=== PATIENT | female | born 1995 | race Caucasian/White ===

== ENCOUNTER 2022-06-10 03:08 | Inpatient (IN) | payer OTHER, SELFPAY ==
[2022-06-10] VITALS (37 sets, daily range): BP systolic 98–112; BP diastolic 53–72; PULSE 58–97; RESP 15; TEMP 36.4–37.6; O2SAT 89–100; BMI 22.6
[2022-06-10] MEDS: Lactated Ringers 1,000 ML 200 ML IV (03:00)
[2022-06-10 03:28] LABS: Mucous, Urine 0 SEEN /hpf (<or=2+)
[2022-06-10 03:32] LABS: Absolute Lymphocyte Count 2.49 X10^3/uL (0.83-4.51); Absolute Neutrophil Count 5.7 X10^3/uL (2.0-7.7); Basophil# 0.03 X10^3/uL; Basophil% 0.3 % (0-1); Eosinophil# 0.26 X10^3/uL; Eosinophils% 2.7 % (0-5); Hematocrit 35.5 % (37-47); Hemoglobin 12.1 g/dL (12.0-15.0); Lymphocyte # 2.49 X10^3/ul (0.83-4.51); Lymphocyte % 26.2 % (19-41); Mean Corp Hgb Conc 34.1 g/dL (32-36); Mean Corpuscular Hgb 30.9 pg (27.0-32.0); Mean Corpuscular Volume 90.6 fL (81-99); Mean Platelet Vol. 9.7 fl (6.2-12.0); Monocyte# 0.95 X10^3/uL; NRBC Flagged by Analyzer 0 % (0-5); Neutrophil # 5.71 X10^3/uL (2.7-7.7); Neutrophil % 60.2 % (47-70); Platelet Count 183 K/mm3 (150-450); RBC Distribution Width CV 12.8 % (11.6-14.6); RBC Distribution Width SD 42.3 fl (35.1-43.9); Red Blood Count 3.92 M/mm3 (4.2-5.4); White Blood Count 9.5 K/mm3 (4.4-11.0)
[2022-06-10 03:34] LABS: Color, Urine Yellow (Yellow); Glucose, Dipstick Normal (Normal); Ketone-Dipstick 5 mg/dl (Negative); Leukocyte Esterase-Dipstick 100 /ul (Negative); Nitrite-Dipstick Negative (Negative); Occult Blood-Urine 250 /ul (Negative); Protein-Dipstick 30 mg/dl (Negative); Urine Bilirubin Dipstick Negative (Negative); Urine Clarity Cloudy (Clear); Urine Urobilinogen Normal (Normal)
[2022-06-10 03:46] LABS: Bacteria RARE /hpf (None Seen); Red Blood Cells-Urine > 100 SEEN /hpf (0-5); Renal Epithelial Cells 0-5 SEEN /hpf (0-5); Squamous Epithelial Cells - UA 0-5 SEEN /hpf (5-10); White Blood Cells 0-5 SEEN /hpf (0-5)
--- NOTE | 2022-06-10 03:47 | HP.PCM.OB_ITS ---
HPI - General General Date of Admission: 06/10/22 HPI Narrative MARLEY JOSEPH, is a 27 F who presents IAL 7 cm dilated. 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 Maternal Data Information MAGDY Calculator Estimated Delivery Date Method Current WG Current Estimate 06/03/22 Manual 41w 0d PFSH PFSH Medical History (Updated 06/10/22 @ 03:[address] Ladan Apodaca MD) depression Superficial varicosities Home Medications [id number] 1 mg tablet 1 tab PO DAILY 06/10/22 [History Last Taken 06/09/22 14:00] Allergy/AdvReac Type Severity Reaction Status Date / Time No Known Allergies Allergy Verified 06/10/22 02:55 Social History Smoking Status: Never smoker History 4 Elective abortions Hx Para 3 Spontaneous abortions Hx # Term Pregnancies 3 Ectopic pregnancies Hx # Pregnancies Multiple births # of living children 3 Addt'l History: first one had mild PPH managed at home, all home births without any compications per patient. all oldest child turning 5 in june Visit Details OB Flowsheet Initial Weight: Not Recorded Date -?-?-?-?-?-?-?-?-?-?-?-?- EGA Weight BP Urine Prot -?-?-?-?-?-?-?-?-?-?-?-?- Glucose FHR FuHt Pres Dilation -?-?-?-?-?-?-?-?-?-?-?-?- Effaced St Visit Note 06/10/22 -?-?-?-?-?-?-?-?-?-?-?-?- 41w 0d 119 lb 11.376 oz 106 /65 112/58 30 mg/dl (Negative) H -?-?-?-?-?-?-?-?-?-?-?-?- -?-?-?-?-?-?-?-?-?-?-?-?- NST FHR Rate Baby A Baseline: 140 Variability:: Moderate Accelerations:: 15 x 15 Decelerations:: None NST Reactive:: Yes FHR Category:: Category I Uterine Activity:: q3-5 ROS Constitutional Constitutional: Reports systems reviewed and no addt'l complaints, except as documented ENT HEENT: Reports systems reviewed and no addt'l complaints, except as documented Cardiovascular Cardiovascular: Reports systems reviewed and no addt'l complaints, except as documented Respiratory/Chest Respiratory/Chest: Reports systems reviewed and no addt'l complaints, except as documented Gastrointestinal Gastrointestinal: Reports systems reviewed and no addt'l complaints, except as documented and nausea; Denies abdominal pain Genitourinary Genitourinary: Reports systems reviewed and no addt'l complaints, except as documented, contractions Details: present and frequency (regular ) and movement Details: present Musculoskeletal Musculoskeletal: Reports systems reviewed and no addt'l complaints, except as documented Integumentary Integumentary: Reports as per HPI Neurologic Neurologic: Reports systems reviewed and no addt'l complaints, except as documented Endocrine Endocrinology: Reports systems reviewed and no addt'l complaints, except as documented Vital Signs Vital Signs Vital Signs: 06/10/22 02:50 06/10/22 02:50 06/10/22 02:55 Temperature Temperature Source Pulse Rate 66 84 Blood Pressure BP Systolic BP Diastolic Pulse Ox 99 06/10/22 02:55 06/10/22 02:58 06/10/22 02:58 Temperature Temperature Source Pulse Rate 78 Blood Pressure 106/65 BP Systolic 106 BP Diastolic 65 Pulse Ox 100 06/10/22 02:58 06/10/22 02:58 Temperature 99.0 F Temperature Source Temporal Pulse Rate Blood Pressure BP Systolic BP Diastolic Pulse Ox Weight Weight: 119 lb 11.376 oz Body Mass Index (BMI) 22.6 Physical Exam Const alert, oriented x3 and healthy appearing Constitutional Narrative: uncomfortable with contractions HEENT normocephalic and moist oral mucous membranes Head and Scalp: atraumatic Neck full ROM, no lymphadenopathy, supple and thyroid normal General: trachea midline Thyroid: thyroid normal Lymph Lymphatic: no lymphadenopathy noted Chest inspection of chest normal Resp normal respiratory effort Cardio regular rate GI normal to inspection, nondistended, normoactive bowel sounds, soft to palpation and non-tender Inspection: gravid external exam normal Bimanual Exam - Vag & Uterus: uterus non-tender Manual OB Exam: estimated gestational size appropriate, presentation cephalic, dilated, effaced and station Extremity normal to inspection General Extremity: Negative for edema Skin no rashes or lesions noted Neuro deep tendon reflexes 2+ bilaterally Motor Exam: strength 5/5 throughout and clonus absent Psych mental status grossly normal Labs Labs Labs: Blood Type Pending Antibody Screen Pending Hct 35.5 % (37-47) L Hgb 12.1 g/dL (12.0-15.0) Syphilis Total Ab Pending Rubella IgG Antibody Pending Hep Bs Antigen Pending HIV 1&2 Antibody Pending Assessment & Plan (1) Vaginal bleeding during : COMMENT: minimal now, fundal placenta on bedside ultrasound (2) Active labor at term: COMMENT: exp management, continuous monitoring PLAN: Plan Patient presents IAL, plan expectant management for , pitocin/AROM PRN if needed. Pain management: none. GBS no risk factors will treat based on CDC risk factor criteria. Management of any complications: none I have reviewed the [facility] and made any clinically relevant updates.
[2022-06-10 03:49] LABS: Amphetamine Urine VISTA NEGATIVE (<1000 ng/mL); Barbiturate Urine VISTA NEGATIVE (< 200 ng/mL); Benzodiazepine Urine VISTA NEGATIVE (< 200 ng/mL); Cocaine Urine VISTA NEGATIVE (< 300 ng/mL); Ecstacy Urine VISTA NEGATIVE (< 500 ng/mL); Methadone Urine VISTA NEGATIVE (< 300 ng/mL); PCP Urine VISTA NEGATIVE (< 25 ng/mL); THC Urine VISTA NEGATIVE (< 50 ng/mL); Vista UDS pH Range 7
[2022-06-10] MEDS: Oxytocin 10 UNITS/ML Vial IM (05:47)
[2022-06-10] MEDS: Methylergonovine 0.2 MG/ML Ampul IM (05:51)
[2022-06-10] MEDS: Carboprost Tromethamine 250 MCG/ML Ampul IM (06:25)
--- NOTE | 2022-06-10 07:08 | EX.PCM.OBRPT ---
Assessment & Plan (1) Active labor at term: COMMENT: exp management, continuous monitoring (2) Vaginal bleeding during : COMMENT: minimal now, fundal placenta on bedside ultrasound (3) Vaginal delivery: COMMENT: SM care associate transfer at due to bleeding, marginal abruption. 41 boy umbilical mass noted at delivery, transported to [facility] (4) abnormality in , delivered: COMMENT: umbilical mass noted at delivery, transported to [facility] (5) Placental abruption affecting delivery: Maternal Data Information MAGDY Calculator Estimated Delivery Date Method Current WG Current Estimate 06/03/22 Manual 41w 0d Vaginal Delivery Operative Information Date of Procedure: 06/10/22 Pre-Operative Diagnosis: IAL Post-Operative Diagnosis: same Surgery / Procedure Performed: Spontaneous Vaginal Delivery Type of Anesthesia: Epidural Special Medications: methergine hemabate pitocin Estimated Blood Loss: 600 Fluids Replaced: crystalloid Findings Description of Procedure: Patient began pushing and delivered the head in the ROGER presentation. The head was delivered atraumatically . The anterior and posterior shoulders delivered without complication followed by the rest of the infant and the was placed on the maternal abdomen. Delayed cord clamping was employed for approximately 60 seconds, umbilical mass was noted to be protuding from the at the umbilicus, unclear if it was an omphalocele or a tumor. Infant was vigorous and crying, movig. Cord was clamped and cut and gentle traction was applied to the cord and the placenta delivered spontaneously immediately following it was noted to be intact with three-vessel cord with a marginal abruption. The perineum and vagina were inspected and noted to have no laceration. EBL was 600cc and she had atony that was treated with massage, pitocin, methergine, and hemabate. Patient and infant tolerated delivery well. Presentation: LANEY Amniotic Membrane Rupture Type: Spontaneous Amniotic Fluid Description: Clear Placental Delivery Description: Spontaneous Placenta Disposition: [facility] Cord Vessel Description: 3 Vessels Cord Entanglement: None Delayed Cord Clamping: Yes Post Vaginal Delivery Medications Given After Delivery: IM Methergin, IM Hemabate and - (IM pitocin) Episiotomy Description: None Laceration: None Complication Complications: None Procedures Urinary/Genital [id number]: [id number] Vaginal Delivery+ Care([facility])
--- NOTE | 2022-06-10 07:19 | DCINST_ITS ---
Discharge Instructions Diet Discharge Diet: No restrictions Activity Discharge Activity: Return to Normal Activity, May Drive, May Shower and May Take a Tub Bath (in 4 weeks) May resume sexual activity in: 6-8 weeks (after seen by OB provider) Weight Bearing Status: Full weight bearing Lifting Restrictions: none Dressing / Incision Call your doctor if you observe: Fever of 101 or Higher, Inability to urinate, Using more than 1 pad per hour (for more than 2 hours in a row or more), Shortness of breath, Dizziness, Chest pain and - (headache not controlled with tylenol, change in vision) Follow Up Care When: in 6 weeks for visit, call the office to make the appointment. If you had elevated blood pressures call the office to be seen within 1 week. Test Results: Test results from this visit will be discussed in further detail at your follow- up appointment, if applicable. Discharge Plan Admission Admit Date/Time: 06/10/22 03:08 Attending Provider: Ladan Apodaca Primary Care Provider: Care Physician,Meenu Primary Discharge Orders/Prescriptions Prescriptions: No Action + Iron 1 mg Tablet 1 tab PO DAILY Referrals / Follow Up: Care Physician,No Primary [Primary Care Provider] - Disposition Disposition (needs filled in before D/C Order can be placed): Home, Self Care
[2022-06-10 07:59] LABS: Chlamydia Trachomatis by PCR Negative (Negative); Neisserai gonorrhoeae by PCR Negative (Negative); Probe Check PASS; Sample Adequacy Control PASS; Specimen Processing Control PASS
[2022-06-10 09:46] LABS: Rubella IgG Non-Reactive (Nonreactive); Syphilis Antibodies Non-reactive
[2022-06-10 10:04] LABS: HIV - WCH Non-Reactive (Nonreactive); Hepatitis B Surface Antigen Non-Reactive (Nonreactive); Hepatitis C Antibody Non-Reactive (Nonreactive)
--- NOTE | 2022-06-10 10:27 | NURSING ---
This RN called Dr. Apodaca office and talked to the nurse to get orders to discharge pt. Dr. Sawyer gave orders to discharge pt and for the pt. to watch her bleeding to stay hydrated, and to take a multivitamin with iron
== END 2022-06-10 11:55 | disposition home or self-care (01) | DRG 807 ==
LOC: WPOUT 03:11 → WP 03:11
PROVIDERS: Admitting Provider Obstetrics & Gynecology; Visit Provider Obstetrics & Gynecology
DX: O45.93 Premature separation of placenta, unspecified, third trimester (principal); Z37.0 Single live birth; O42.92 Full-term premature rupture of membranes, unspecified as to length of time between rupture and onset of labor; O48.0 Post-term pregnancy; O69.89X0 Labor and delivery complicated by other cord complications, not applicable or unspecified; Z3A.41 41 weeks gestation of pregnancy; Z87.59 Personal history of other complications of pregnancy, childbirth and the puerperium
CPT/HCPCS: 59025; 59050; 76815; 80307; 81001; 85025; 86703; 86762; 86780; 86803; 86850; 86900; 86901; 87340; 87491; 87591; 99218; J7120; G0378